=== PATIENT | male | born 1985 | race African-American/Black ===

== ENCOUNTER 2019-04-04 17:01 | Emergency (ER) | payer BC ==
[~2019-04-04] VITALS: Ht 182.9 cm; Wt 95.3 kg
[~2019-04-04 17:01] MED LIST: HYDR-3164 PO; SULF1TAB24 PO
[2019-04-04 17:42] VITALS: BP 157/81
[2019-04-04] MEDS ORDERED: METH4TAB2 PO (18:08)
[2019-04-04] MEDS ORDERED: AMOX500C PO (18:08)
--- NOTE | 2019-04-04 18:08 | PHYS DOC ---
Past Medical History Past Medical History: No Pertinent History ([facility],DIANE Whitman WIRELESS NETWORK ENGINEER) Past Surgical History: No Surgical History ([facility],DIANE WIRELESS NETWORK ENGINEER) Alcohol Use: Occasionally Drug Use: None ([facility],DIANE WIRELESS NETWORK ENGINEER) Adult General Chief Complaint Chief Complaint: SORE THROAT HPI HPI Patient is a 33 year old Male who presents with bilateral ear pain and throat pain for 2 days. Patient denies fevers, cough, nasal congestion, chest pain, shortness of air, nausea, vomiting, abdominal pain. Patient rates his aching ear pain an 8 out of 10. ([facility],DIANE WIRELESS NETWORK ENGINEER) Review of Systems Review of Systems Constitutional: Denies fever or chills [] Eyes: Denies change in visual acuity, redness, or eye pain [] HENT: Denies nasal congestion or +sore throat, bilateral ear pain [] Respiratory: Denies cough or shortness of breath [] Cardiovascular: No additional information not addressed in HPI [] GI: Denies abdominal pain, nausea, vomiting, bloody stools or diarrhea [] : Denies dysuria or hematuria [] Musculoskeletal: Denies back pain or joint pain [] Integument: Denies rash or skin lesions [] Neurologic: Denies headache, focal weakness or sensory changes [] Endocrine: Denies polyuria or polydipsia [] All other systems were reviewed and found to be within normal limits, except as documented in this note. ([facility],DIANE WIRELESS NETWORK ENGINEER) Allergies Allergies Allergies Coded Allergies Type Severity Reaction Last Updated Verified No Known Drug Allergies 09/16/18 No (MARLEN JAMISON MD) Physical Exam Physical Exam Constitutional: Well developed, well nourished, no acute distress, non-toxic appearance. [] HENT: Normocephalic, atraumatic, bilateral external ears normal, oropharynx moist, no oral exudates, nose normal. Bilateral ear tympanic red. Throat is reddened with bilateral tonsils 1+ swelling and right tonsil with white patches.[] Eyes: PERRLA, EOMI, conjunctiva normal, no discharge. [] Neck: Normal range of motion, no tenderness, supple, no stridor. [] Cardiovascular:Heart rate regular rhythm, no murmur [] Lungs & Thorax: Bilateral breath sounds clear to auscultation [] Abdomen: Bowel sounds normal, soft, no tenderness, no masses, no pulsatile masses. [] Skin: Warm, dry, no erythema, no rash. [] Back: No tenderness, no CVA tenderness. [] Extremities: No tenderness, no cyanosis, no clubbing, ROM intact, no edema. [] Neurologic: Alert and oriented X 3, normal motor function, normal sensory function, no focal deficits noted. [] Psychologic: Affect normal, judgement normal, mood normal. [] (DIANE GUZMÁN APRN) Current Patient Data Vital Signs Vital Signs Date Time Temp Pulse Resp B/P (MAP) Pulse Ox O2 Delivery O2 Flow Rate FiO2 04/04/19 17:42 98.3 84 16 157/81 (106) 98 Room Air 98.3 (MARLEN JAMISON MD) EKG EKG [] (DIANE GUZMÁN APRN) Radiology/Procedures Radiology/Procedures [] (DIANE GUZMÁN APRN) Course & Med Decision Making Course & Med Decision Making Patient is a 33 year old Male who presents with bilateral ear pain and throat pain for 2 days. Patient denies fevers, cough, nasal congestion, chest pain, shortness of air, nausea, vomiting, abdominal pain. Patient rates his aching ear pain an 8 out of 10. Alert and oriented. Speaks in full clear sentences. Skin is pink warm and dry. Bacitracin normal limits. Throat is reddened and bilateral tonsils are 1+ swollen. The right tonsil looks to have white patches. Strep is negative. Bilateral ear tympanic are red and tender with limitation. Afebrile. Patient is treated for otitis media given a Medrol dose pack to help with swelling and pain with his throat. Patient to follow-up with primary care. (DIANE GUZMÁN APRN) Course & Med Decision Making Staff Physician Addendum: I was working in the ER during the course of this patient's visit. I was available for consultation as needed, but I was not directly involved in the care of this patient. (MARLEN JAMISON MD) Dragon Disclaimer Dragon Disclaimer This electronic medical record was generated, in whole or in part, using a voice recognition dictation system. (DIANE GUZMÁN APRN) Departure Departure Impression: Primary Impression: Otitis media Disposition: 01 HOME, SELF-CARE Condition: STABLE Referrals: UNKNOWN PCP NAME (PCP) Patient Instructions: Otitis Media, Adult Additional Instructions: Follow-up with primary care provider. Take medications as prescribed. Use ibuprofen or Tylenol for pain and fever. Scripts Methylprednisolone (MEDROL) 4 Mg Tab.ds.pk 1 PKG PO UD, #1 PKG Prov: DIANE GUZMÁN WIRELESS NETWORK ENGINEER 04/04/19 Amoxicillin (AMOXICILLIN) 500 Mg Capsule 1 CAP PO BID, #20 CAP Prov: DIANE GUZMÁN WIRELESS NETWORK ENGINEER 04/04/19 Problem Qualifiers Primary Impression: Otitis media Otitis media type: unspecified Laterality: bilateral Qualified Codes: H66.93 - Otitis media, unspecified, bilateral DIANE GUZMÁN WIRELESS NETWORK ENGINEER Apr 04, 2019 18:08 MARLEN JAMISON MD Apr 04, 2019 23:09
== END 2019-04-04 18:26 | disposition home or self-care (01) ==
LOC: ER 17:01
DX: H66.93 Otitis media, unspecified, bilateral (principal); R07.0 Pain in throat
CPT/HCPCS: 87070; 87880; 99284

== ENCOUNTER 2019-07-17 08:53 | Emergency (ER) | payer BC ==
[~2019-07-17] VITALS: Ht 175.3 cm; Wt 90.7 kg
[~2019-07-17 08:53] MED LIST changes: +AMOX500C PO; +METH4TAB2 PO
[2019-07-17] MEDS ORDERED: IV NORMAL SALINE 1000ML BAG 1,000 ML IV SCH (09:05)
[2019-07-17] MEDS ORDERED: ONDANSETRON PF 4 MG/2 ML VIAL. IV ONE (09:15)
[2019-07-17] MEDS ORDERED: PANTOPRAZOLE IV PUSH 40 MG VIAL. IVP ONE (09:15)
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
[2019-07-17 09:26] LABS: BASO # 0.1 x10^3/uL (0.0-0.2); BASO % 1 % (0-3); EOS # 0.1 x10^3/uL (0.0-0.7); EOS % 1 % (0-3); HEMOGLOBIN 15.1 g/dL (13.0-17.5); LYMPH % 45 % (24-48); MEAN CORPUSCULAR HEMOGLOBIN 24 pg (25-35); MEAN CORPUSCULAR HGB CONC 33 g/dL (31-37); MEAN CORPUSCULAR VOLUME 73 fL (79-100); MONO # 0.5 x10^3/uL (0.0-1.1); MONO % 6 % (0-9); NEUT # 4.1 x10^3/uL (1.8-7.7); NEUT % 47 % (31-73); PLATELET COUNT 236 x10^3/uL (140-400); RED BLOOD COUNT 6.34 x10^6/uL (4.30-5.70); RED CELL DISTRIBUTION WIDTH 13.8 % (11.5-14.5); WHITE BLOOD COUNT 8.8 x10^3/uL (4.0-11.0)
[2019-07-17] MEDS ORDERED: fentaNYL PF VIAL 100 MCG/2 ML VIAL IVP ONE (09:30)
[2019-07-17] MEDS ORDERED: CONTRAST GIVEN. MC PRN (09:30)
[2019-07-17] MEDS ORDERED: IV NORMAL SALINE 1000ML BAG 1,000 ML IV ONE (09:30)
[2019-07-17] MEDS ORDERED: IOHEXOL 300 MG/ML 100ML VIAL. IV ONE (09:30)
[2019-07-17 09:32] LABS: BILIRUBIN,URINE NEGATIVE (NEG); CLARITY,URINE CLEAR; COLOR,URINE YELLOW; NITRITE,URINE NEGATIVE (NEG); PROTEIN,URINE NEGATIVE (NEG-TRACE)
[2019-07-17 09:34] LABS: PROTHROMBIN TIME PATIENT 10.8 SEC (11.7-14.0)
[2019-07-17 09:35] LABS: SQUAMOUS EPITHELIAL CELL,UR FEW /LPF
[2019-07-17 09:36] LABS: BACTERIA,URINE FEW /HPF (0-FEW); RBC,URINE OCC /HPF (0-2)
[2019-07-17 09:37] LABS: CALCIUM 9.1 mg/dL (8.5-10.1); CREATININE 0.9 mg/dL (0.7-1.3); GFR 116.9; POTASSIUM 4.1 mmol/L (3.5-5.1)
[2019-07-17 09:38] LABS: BARBITURATES NEG (NEG); BENZODIAZEPINES NEG (NEG); CANNABINOIDS POS (NEG); COCAINE NEG (NEG); METHADONE NEG (NEG); OPIATES NEG (NEG); PHENCYCLIDINE NEG (NEG)
[2019-07-17 09:43] LABS: ALBUMIN 4.4 g/dL (3.4-5.0); ALBUMIN/GLOBULIN RATIO 1.2 (1.0-1.7); TOTAL BILIRUBIN 0.2 mg/dL (0.2-1.0); TOTAL PROTEIN 8.1 g/dL (6.4-8.2)
[2019-07-17 09:44] LABS: AMPHETAMINE/METHAMPHETAMINE NEG (NEG)
--- NOTE | 2019-07-17 10:16 | RAD ---
Exam performed: 2 views of the chest. Indication: Chest pain Date of Service: 07/17/2019 9:05 AM . Comparison : None available Findings: PA and lateral radiographs of the chest reveal a normal cardiomediastinal contour. The lungs are clear. No pleural fluid is seen. The visualized osseous structures are unremarkable. Impression: No acute cardiopulmonary process seen. Electronically signed by: Sherley Villa MD (07/17/2019 10:13 AM) [facility]
--- NOTE | 2019-07-17 10:21 | RAD ---
CT SCAN OF THE ABDOMEN AND PELVIS WITH IV CONTRAST. History: Vomiting nausea and diarrhea Comparison:None. Procedure: Contiguous axial images of the abdomen and pelvis were performed after the administration of 75 cc of Omni 300 IV contrast. Oral contrast: No. Findings: Liver: Unremarkable Spleen: Unremarkable Pancreas: Unremarkable Adrenal Glands: Unremarkable Kidneys: Unremarkable There is no mass or lymphadenopathy. There is no free air. There is no free fluid. The urinary bladder is mostly collapsed and not well evaluated. The appendix is normal. Impression: No acute findings. PQRS Compliance Statement: One or more of the following individualized dose reduction techniques were utilized for this examination: 1. Automated exposure control 2. Adjustment of the mA and/or kV according to patient size 3. Use of iterative reconstruction technique Electronically signed by: Nabor Jackson III, MD (07/17/2019 10:18 AM) [facility]
[2019-07-17] MEDS ORDERED: FAMO-63 PO (10:34)
[2019-07-17] MEDS ORDERED: ONDA4TAB12 PO (10:34)
[2019-07-17 11:17] VITALS: BP 113/54
--- NOTE | 2019-07-18 06:52 | EKG ---
[facility] [address] [place] [address] Test Date: 2019-07-17 Test Time: 09:31:15 Pat Name: ARTIE NUNES Department: Room: Gender: M Manager Express: : 1985 Requested By: DIANE GUZMÁN Order Number: [id number] Reading MD: Measurements Intervals Salol Rate: 79 P: 64 AR: 166 QRS: 52 QRSD: 92 T: 23 QT: 360 QTc: 414 Interpretive Statements SINUS RHYTHM QRS(T) CONTOUR ABNORMALITY CONSIDER ANTEROLATERAL MYOCARDIAL DAMAGE POSSIBLY ABNORMAL ECG RI6.01 No previous ECG available for comparison
== END 2019-07-17 11:55 | disposition home or self-care (01) ==
LOC: ER 08:53
DX: R11.2 Nausea with vomiting, unspecified (principal); R10.13 Epigastric pain; R07.89 Other chest pain; R06.02 Shortness of breath; Z79.899 Other long term (current) drug therapy
CPT/HCPCS: 36415; 71046; 74177; 80053; 80307; 81001; 83690; 84484; 85025; 85610; 93005; 96361; 96374; 96375; 99285; C9113; G0480; J2405; J3010; J7030; Q9967

== ENCOUNTER 2021-09-26 11:53 | Emergency (ER) | payer SELFPAY ==
[~2021-09-26] VITALS: Ht 175.3 cm; Wt 86.3 kg
[~2021-09-26 11:53] MED LIST changes: +FAMO-63 PO; +ONDA4TAB12 PO
[2021-09-26 12:00] VITALS: BP 163/85
[2021-09-26] MEDS ORDERED: KETOROLAC 30 MG/ML VIAL. IM ONE (12:45)
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
--- NOTE | 2021-09-26 13:10 | RAD ---
EXAM: Left knee, 3 views. HISTORY: Pain and swelling. COMPARISON: None. FINDINGS: 3 views of the left knee are obtained. There is no fracture, dislocation or subluxation. Th ere is no joint effusion. IMPRESSION: No acute osseous finding. Electronically signed by: Meggan Boyce MD (09/26/2021 1:08 PM) [id number]
[2021-09-26] MEDS ORDERED: NAPR-695 PO (13:42)
[2021-09-26] MEDS ORDERED: CRUT1EAC3 MC (13:42)
[2021-09-26] MEDS ORDERED: HYDR-2761 PO (13:42)
== END 2021-09-26 14:20 | disposition home or self-care (01) ==
LOC: ER 11:53
DX: M25.562 Pain in left knee (principal); R22.42 Localized swelling, mass and lump, left lower limb; F17.200 Nicotine dependence, unspecified, uncomplicated
CPT/HCPCS: 73562; 99283; J1885; A6450